=== PATIENT | male | born 2000 | race Caucasian/White ===

== ENCOUNTER 2021-02-16 15:20 | Emergency (ER) | payer SELFPAY ==
[~2021-02-16] VITALS: Ht 172.7 cm; Wt 70.0 kg
[2021-02-16 17:02] LABS: BASO # 0.1 K/mm3 (0.0-0.2); BASO % 0.3 % (0.0-2.0); EOS % 0.1 % (0-4.0); GRAN # 13.8 K/mm3 (1.4-6.5); GRAN % 84.4 % (42.2-75.2); HEMATOCRIT 42.6 % (42.0-52.0); HEMOGLOBIN 15.2 g/dl (13.5-18.0); LYMPH # 0.9 K/mm3 (1.2-3.4); LYMPH % 5.6 % (20.0-51.0); MEAN CELL VOLUME 81 fl (80.0-100.0); MEAN CORPUSCULAR HEMOGLOBIN 29 pg (27.0-31.0); MEAN CORPUSCULAR HGB CONC 36 g/dl (33.0-37.0); MEAN PLATELET VOLUME 10.2 fl (7.4-10.4); MONO # 1.5 K/mm3 (0.1-0.6); PLATELET COUNT 225 K/mm3 (130-400); RED BLOOD COUNT 5.25 M/mm3 (4.20-5.60)
[2021-02-16 17:24] LABS: COLLECTION METHOD CLEAN CATCH
[2021-02-16 17:25] LABS: ALBUMIN 3.6 gm/dL (3.5-5.0); BILIRUBIN,TOTAL 0.8 mg/dL (0.2-1.2); C-REACTIVE PROTEIN 28.5 mg/dL (0.00-0.50); CALCIUM 10.1 mg/dL (8.4-10.2); CREATININE, serum 0.84 mg/dL (0.72-1.25); POTASSIUM 3.4 mmol/L (3.5-4.5); TOTAL PROTEIN 8.6 gm/dL (6.2-8.1)
[2021-02-16 17:38] LABS: MUCOUS Present /lpf; PH 5 (5-8); SQUAMOUS EPITHELIAL 0-2 /hpf; URINE APPEARANCE Hazy; URINE BACTERIA None Seen /hpf; URINE BILIRUBIN Positive (NEGATIVE); URINE BLOOD 2+ (NEGATIVE); URINE COLOR Amber; URINE GLUCOSE Negative (NEGATIVE); URINE KETONE 1+ (NEGATIVE); URINE LEUKOCYTE ESTERASE Negative (NEGATIVE); URINE NITRATE Negative (NEGATIVE); URINE PROTEIN(semi-quant) 3+ (NEGATIVE); URINE RBC 20-50 /hpf; URINE UROBILINOGEN >=4.0 mg/dL (NEGATIVE)
[2021-02-16] MEDS ORDERED: OMNICEF 300MG300 MG PO (18:34)
[2021-02-16] MEDS ORDERED: ZOFRAN 4MG T4 MG/TAB PO (18:35)
[2021-02-16 20:36] VITALS: BP 119/63; PULSE 71; TEMP 97.9
== END 2021-02-16 20:25 | disposition home or self-care (01) ==
LOC: COL.ER 15:20
PROVIDERS: Nurse Practitioner Primary Care
DX: K92.2 Gastrointestinal hemorrhage, unspecified (principal); N12 Tubulo-interstitial nephritis, not specified as acute or chronic; Z20.822 Contact with and (suspected) exposure to COVID-19
CPT/HCPCS: C9113; J0696; J2270; J2405; J7030; Q9967

== ENCOUNTER 2021-03-23 08:37 | Day surgery (SDC) | payer SELFPAY ==
[~2021-03-23] VITALS: Ht 167.6 cm; Wt 72.0 kg
[~2021-03-23 08:37] MED LIST: OMNICEF 300MG300 MG PO; ZOFRAN 4MG T4 MG/TAB PO
[2021-03-23 09:12] VITALS: BP 131/86; PULSE 67; TEMP 98.1
[2021-03-23 10:00] VITALS: BP 112/65; PULSE 76; TEMP 97.8
[2021-03-23 10:15] VITALS: BP 117/77; PULSE 70
[2021-03-23 10:30] VITALS: BP 122/70; PULSE 67
--- NOTE | 2021-03-23 14:23 | NUR ---
1000- Pt returns from endo procedure via cart and RN assist to GI Brogue 3. Pt ambulates from cart to recliner with RN assist. Monitors on and alarms set. Call light within reach. Pt alert and oriented. Pt requests juice and chocolate pudding. Pt denies any pain or nausea. 1015- Pt taking food and drink well. No complications noted. 1030- Discharge instructions given to pt. All questions answered to patient and mother's satisfaction. Handed to pt education material and discharge information. 1050- Pt transferred out of the hospital via wheelchair and RN assist, to private vehicle driven by mother.
== END 2021-03-23 10:50 | disposition home or self-care (01) ==
LOC: SDCO 08:37
DX: K29.30 Chronic superficial gastritis without bleeding (principal); K21.00 Gastro-esophageal reflux disease with esophagitis, without bleeding; K44.9 Diaphragmatic hernia without obstruction or gangrene; K92.1 Melena; N12 Tubulo-interstitial nephritis, not specified as acute or chronic; J02.9 Acute pharyngitis, unspecified; F90.9 Attention-deficit hyperactivity disorder, unspecified type; F41.9 Anxiety disorder, unspecified; F91.3 Oppositional defiant disorder; F17.210 Nicotine dependence, cigarettes, uncomplicated; Z79.899 Other long term (current) drug therapy; Z83.3 Family history of diabetes mellitus
CPT/HCPCS: J2704; J7120